=== PATIENT | female | born 1990 | race African-American/Black ===

== ENCOUNTER 2020-06-01 22:28 | Emergency (ER) | payer MEDICAID, OTHER ==
[~2020-06-01] VITALS: Ht 165.1 cm; Wt 90.0 kg
[2020-06-01 23:02] VITALS: BP 136/85
== END 2020-06-02 01:37 | disposition left against medical advice (07) ==
LOC: ER 22:28
DX: Z53.21 Procedure and treatment not carried out due to patient leaving prior to being seen by health care provider (principal)